=== PATIENT | female | born 1975 | race Caucasian/White ===

== ENCOUNTER 2016-12-30 10:54 | Emergency (ER) | payer OTHER ==
[2016-12-30] MEDS ORDERED: Sodium Chloride 0.9% 1,000 ML IV ONE (11:14)
[2016-12-30] MEDS ORDERED: Morphine 2 MG/ML Syringe IVPUSH ONE (11:14)
[2016-12-30] MEDS ORDERED: Ondansetron 4 MG/2 ML SDV IVPUSH ONE (11:14)
[2016-12-30 11:16] VITALS: BP 122/79
[2016-12-30 11:54] LABS: CHLORIDE,CL 104 mmol/L (98-110); SODIUM,NA 141 mmol/L (136-146)
--- NOTE | 2016-12-30 12:05 | EDM.PDOC ---
ED HPI GI/ABDOMINAL - General Chief Complaint: Abdominal Pain Stated Complaint: ABDOMINAL PAIN Time Seen by Provider: 12/30/16 11:02 Source of Information: Reports: Patient History Limitations: Reports: No limitations - History of Present Illness INITIAL COMMENTS - FREE TEXT/NARRATIVE: History of present illness: [] Patient has had a week of constipation and comes in with abdominal pain and rectal bleeding today. She states she is almost toilet all night trying to have a bowel movement and started passing blood from her rectum. She also complains of inability to urinate, swelling of her abdomen and nausea. She is also unable to urinate. Patient is currently being followed oncology for an abnormal neutrophil count. Review of systems: As per history of present illness and below otherwise all systems reviewed and negative. Past medical history: As per history of present illness and as reviewed below otherwise noncontributory. Surgical history: As per history of present illness and as reviewed below otherwise noncontributory. Social history: No reported history of drug or alcohol abuse. Family history: As per history of present illness and as reviewed below otherwise noncontributory. Physical exam: General: Well developed, well nourished in NAD HEENT: Atraumatic, normocephalic, pupils reactive, negative for conjunctival pallor or scleral icterus, mucous membranes moist, throat clear, neck supple, nontender, trachea midline. Lungs: Clear to auscultation, breath sounds equal bilaterally, chest nontender. Heart: S1S2, regular, negative for clicks, rubs, or JVD. Abdomen: Soft, distended, no tympanitic to percussion, nontender, no palpable masses no rebound or guarding. hepatosplenomegaly. Negative for costovertebral tenderness. Pelvis: Stable nontender. Genitourinary: Deferred. Rectal: Deferred. Extremities: Atraumatic, negative for cords or calf pain. Neurovascular unremarkable. Neuro: Awake, alert, oriented. Cranial nerves II through XII unremarkable. Cerebellum unremarkable. Motor and sensory unremarkable throughout. Exam nonfocal. Diagnostics: [] X-ray ruling out obstruction, labs and UA are all normal Therapeutics: [] IV hydrated pain management with improvement Impression: [] Constipation Plan: [] Mag citrate as directed followup PMD return if symptoms worsen Definitive disposition and diagnosis as appropriate pending reevaluation and review of above. - Related Data Allergies/ADRs: Allergies Allergy/AdvReac Type Severity Reaction Status Date / Time clonazepam Allergy Nausea Verified 12/30/16 11:08 pregabalin [From Lyrica] Allergy Paralysis Verified 12/30/16 11:08 Home Meds: Home Meds Diltiazem [Dilacor XR] 1 tab PO DAILY 11/04/14 [History] Omeprazole [Omeprazole] 1 tab PO DAILY 07/18/15 [History] Propranolol [Inderal LA] 1 tab PO DAILY 07/18/15 [History] Carisoprodol [Soma] 350 mg PO TID PRN 11/19/15 [History] Ascorbate Calcium [Vitamin C] 1 tab PO DAILY 08/17/16 [History] Divalproex Sodium [Divalproex Sodium ER] 1 tab PO BIDPC PRN 08/17/16 [History] Gabapentin [Neurontin] 600 mg PO BID 08/17/16 [History] PARoxetine HCl [Paxil] 20 mg PO DAILY 08/17/16 [History] atorvaSTATin Calcium [Atorvastatin Calcium] 10 mg PO DAILY 08/17/16 [History] Bisacodyl [Dulcolax] 5 mg PO DAILY 12/30/16 [History] Past Medical History Cardiovascular History: Reports: Arrhythmia, Hypertension Other Cardiovascular History: tachycardia, mitral valve prolapse Gastrointestinal History: Reports: GERD 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 - Infectious Disease History Infectious Disease History: Reports: Chicken pox Other Infectious Disease History: childhood. - Past Surgical History Cardiovascular Surgical History: Reports: Cardiac Ablation GI Surgical History: Reports: None Social & Family History - Family History Family Medical History: Noncontributory - Tobacco Use Smoking Status *Q: Never Smoker Second Hand Smoke Exposure: No - Caffeine Use Caffeine Use: Reports: Coffee - Alcohol Use Days Per Week of Alcohol Use: 0 - Recreational Drug Use Recreational Drug Use: No ED ROS GENERAL - Review of Systems Review Of Systems: See Below (See history of present illness) ED EXAM, GI/ABD - Physical Exam Exam: See Below (See history of present illness) Course - Vital Signs Last Recorded V/S: Last Vital Signs Temp 36.8 C 12/30/16 11:08 Pulse 75 12/30/16 11:08 Resp 18 12/30/16 11:08 BP 122/79 12/30/16 11:08 Pulse Ox 100 12/30/16 11:08 - Orders/Labs/Meds Orders: Active Orders 24 hr Category Date Time Status Abdomen 2V AP Upright Decub [CR] Stat Exams 12/30/16 11:13 Taken Labs: Laboratory Tests 12/30/16 12/30/16 12/30/16 Range/Units 11:25 11:25 11:25 WBC 4.93 (4.0-11.0) K/uL RBC 4.10 L (4.30-5.90) M/uL Hgb 12.2 (12.0-16.0) g/dL Hct 37.1 (36.0-46.0) % MCV 90.5 (80.0-98.0) fL MCH 29.8 (27.0-32.0) pg MCHC 32.9 (31.0-37.0) g/dL RDW Std Deviation 43.2 (28.0-62.0) fl RDW Coeff of Adithya 13 (11.0-15.0) % Plt Count 253 (150-400) K/uL MPV 9.80 (7.40-12.00) fL Neut % (Auto) 30.7 L (48.0-80.0) % Lymph % (Auto) 51.5 H (16.0-40.0) % [place] % (Auto) 15.0 (0.0-15.0) % Eos % (Auto) 2.6 (0.0-7.0) % Baso % (Auto) 0.2 (0.0-1.5) % Neut # 1.5 (1.4-5.7) K/uL Lymph # 2.5 H (0.6-2.4) K/uL [place] # 0.7 (0.0-0.8) K/uL Eos # 0.1 (0.0-0.7) K/uL Baso # 0.0 (0.0-0.1) K/uL Nucleated RBC % 0.0 /100WBC Nucleated RBCs # 0 K/uL Sodium 141 (136-146) mmol/L Potassium 4.0 (3.5-5.1) mmol/L Chloride 104 (98-110) mmol/L Carbon Dioxide 27 (21-31) mmol/L BUN 9 (6.0-23.0) mg/dL Creatinine 0.7 (0.6-1.5) mg/dL Est Cr Clr Drug Dosing 87.70 mL/min Estimated GFR (MDRD) > 60.0 ml/min Glucose 89 (60-110) mg/dL Calcium 9.1 (8.8-10.8) mg/dL Total Bilirubin 0.4 (0.1-1.5) mg/dL AST 18 (5-40) IU/L ALT 46 (8-54) IU/L Alkaline Phosphatase 66 (40-150) Total Protein 6.7 (6.0-8.0) g/dL Albumin 4.0 (3.5-5.0) g/dL Globulin 2.7 (2.0-3.5) g/dL Albumin/Globulin Ratio 1.5 (1.3-2.8) HCG, Qual (NEG) Urine Color Urine Appearance Urine pH (5.0-8.0) Ur Specific [place] (1.001-1.035) Urine Protein (NEGATIVE) mg/dL Urine Glucose (UA) (NEGATIVE) mg/dL Urine Ketones (NEGATIVE) mg/dL Urine Occult Blood (NEGATIVE) Urine Nitrite (NEGATIVE) Urine Bilirubin (NEGATIVE) Urine Urobilinogen (<2.0) EU/dL Ur Leukocyte Esterase (NEGATIVE) Urine RBC (0-2/HPF) Urine WBC (0-5/HPF) Ur Epithelial Cells (NONE-FEW) Urine Bacteria (NEGATIVE) Blood Type O POSITIVE Antibody Screen NEGATIVE 12/30/16 12/30/16 Range/Units 11:25 12:08 WBC (4.0-11.0) K/uL RBC (4.30-5.90) M/uL Hgb (12.0-16.0) g/dL Hct (36.0-46.0) % MCV (80.0-98.0) fL MCH (27.0-32.0) pg MCHC (31.0-37.0) g/dL RDW Std Deviation (28.0-62.0) fl RDW Coeff of Adithya (11.0-15.0) % Plt Count (150-400) K/uL MPV (7.40-12.00) fL Neut % (Auto) (48.0-80.0) % Lymph % (Auto) (16.0-40.0) % [place] % (Auto) (0.0-15.0) % Eos % (Auto) (0.0-7.0) % Baso % (Auto) (0.0-1.5) % Neut # (1.4-5.7) K/uL Lymph # (0.6-2.4) K/uL [place] # (0.0-0.8) K/uL Eos # (0.0-0.7) K/uL Baso # (0.0-0.1) K/uL Nucleated RBC % /100WBC Nucleated RBCs # K/uL Sodium (136-146) mmol/L Potassium (3.5-5.1) mmol/L Chloride (98-110) mmol/L Carbon Dioxide (21-31) mmol/L BUN (6.0-23.0) mg/dL Creatinine (0.6-1.5) mg/dL Est Cr Clr Drug Dosing mL/min Estimated GFR (MDRD) ml/min Glucose (60-110) mg/dL Calcium (8.8-10.8) mg/dL Total Bilirubin (0.1-1.5) mg/dL AST (5-40) IU/L ALT (8-54) IU/L Alkaline Phosphatase (40-150) Total Protein (6.0-8.0) g/dL Albumin (3.5-5.0) g/dL Globulin (2.0-3.5) g/dL Albumin/Globulin Ratio (1.3-2.8) HCG, Qual NEGATIVE (NEG) Urine Color YELLOW Urine Appearance CLEAR Urine pH 6.5 (5.0-8.0) Ur Specific [place] 1.010 (1.001-1.035) Urine Protein NEGATIVE (NEGATIVE) mg/dL Urine Glucose (UA) NEGATIVE (NEGATIVE) mg/dL Urine Ketones NEGATIVE (NEGATIVE) mg/dL Urine Occult Blood NEGATIVE (NEGATIVE) Urine Nitrite NEGATIVE (NEGATIVE) Urine Bilirubin NEGATIVE (NEGATIVE) Urine Urobilinogen 0.2 (<2.0) EU/dL Ur Leukocyte Esterase NEGATIVE (NEGATIVE) Urine RBC 0-1 (0-2/HPF) Urine WBC 0-2 (0-5/HPF) Ur Epithelial Cells FEW (NONE-FEW) Urine Bacteria RARE (NEGATIVE) Blood Type Antibody Screen Meds: Medications Discontinued Medications Generic Name Dose Route Start Last Admin Trade Name Samantha PRN Reason Stop Dose Admin Sodium Chloride 1,000 mls @ 999 mls/hr 12/30/16 11:14 12/30/16 11:27 Normal Saline IV 12/30/16 12:14 999 mls/hr .Bolus ONE Administration Morphine Sulfate 2 mg 12/30/16 11:14 12/30/16 11:27 Morphine IVPUSH 12/30/16 11:15 2 mg ONETIME ONE Administration Ondansetron HCl 4 mg 12/30/16 11:14 12/30/16 11:27 Zofran IVPUSH 12/30/16 11:15 4 mg ONETIME ONE Administration Departure - Departure Time of Disposition: 12:42 Disposition: Home, Self-Care 01 Condition: good Clinical Impression: Constipation Qualifiers: Constipation type: unspecified constipation type Qualified Code(s): K59.00 - Constipation, unspecified Forms: ED Department Discharge Additional Instructions: The following information is given to patients seen in the emergency department who are being discharged to home. This information is to outline your options for follow-up care. We provide all patients seen in our emergency department with a follow-up referral. The need for follow-up, as well as the timing and circumstances, are variable depending upon the specifics of your emergency department visit. If you don't have a primary care physician on staff, we will provide you with a referral. We always advise you to contact your personal physician following an emergency department visit to inform them of the circumstance of the visit and for follow-up with them and/or the need for any referrals to a consulting specialist. The emergency department will also refer you to a specialist when appropriate. This referral assures that you have the opportunity for follow-up care with a specialist. All of these measure are taken in an effort to provide you with optimal care, which includes your follow-up. Under all circumstances we always encourage you to contact your private physician who remains a resource for coordinating your care. When calling for follow-up care, please make the office aware that this follow-up is from your recent emergency room visit. If for any reason you are refused follow-up, please contact the [facility] Emergency Department at and asked to speak to the emergency department charge nurse. Mag maynard as directed [facility] [address] [place] [id number] - My Orders Last 24 Hours: My Active Orders 12/30/16 11:13 Abdomen 2V AP Upright Decub [CR] Stat - Assessment/Plan Last 24 Hours: My Active Orders 12/30/16 11:13 Abdomen 2V AP Upright Decub [CR] Stat
--- NOTE | 2016-12-31 21:21 | CR ---
EXAM DATE: 12/30/16 PATIENT'S AGE: 41 Patient: TIMOTHY VELIZ Facility: [place], [place] : 1975 Study: XRay Chest/Abd/Pelvis [id number]/12/2017 12:27:24 PM Ordering Physician: Hoang Hernandez Final Report: INDICATION: Pain, Constipation TECHNIQUE: Three views, acute abdominal series. COMPARISON: Correlation is made with CT of the chest, abdomen and pelvis dated 05/31/2016. FINDINGS: No air-filled distended loops of bowel. No pneumatosis or portal venous gas. No free intraperitoneal air. Moderate stool burden. There are no suspicious calcifications noted over either kidney or ureter. No aggressive osseous lesion. Moderate right-sided scoliosis of the chest, left-sided scoliosis in the lumbar spine. No pleural effusion, or new pulmonary opacities. IMPRESSION: Nonobstructed bowel gas pattern. No free intraperitoneal air. Moderate stool burden. Dictated by Khris Chambers MD @ Dec 30 2016 12:55PM (Electronic Signature) Report Signed by Proxy and Original Signed Document filed in the Medical Record. MTDD
== END 2016-12-30 12:56 | disposition home or self-care (01) ==
LOC: MW.ED 10:54
DX: K59.00 Constipation, unspecified (principal); I10 Essential (primary) hypertension; K21.9 Gastro-esophageal reflux disease without esophagitis; Z79.899 Other long term (current) drug therapy; Z88.8 Allergy status to other drugs, medicaments and biological substances
CPT/HCPCS: 36415; 74022; 80053; 81001; 84703; 85025; 86850; 86900; 86901; 96361; 96374; 96375; 99283; J2270; J2405; J7040; 99284

== ENCOUNTER 2017-03-06 20:09 | Emergency (ER) | payer OTHER ==
[2017-03-06 21:29] VITALS: BP 136/80
== END 2017-03-06 21:58 | disposition left against medical advice (07) ==
LOC: MW.ED 20:09
DX: Z53.21 Procedure and treatment not carried out due to patient leaving prior to being seen by health care provider (principal)

== ENCOUNTER 2017-11-26 16:24 | Emergency (ER) | payer OTHER ==
[2017-11-26] MEDS ORDERED: Bacitracin Oint 1 GM U/D Packet TOP ONE (16:57)
--- NOTE | 2017-11-26 17:04 | EDM.PDOC ---
ED HPI GENERAL MEDICAL PROBLEM - General Chief Complaint: Bite:Animal, Insect Stated Complaint: DOG BITE LEFT HAND Time Seen by Provider: 11/26/17 16:31 Source of Information: Reports: Patient History Limitations: Reports: No Limitations - History of Present Illness INITIAL COMMENTS - FREE TEXT/NARRATIVE: HISTORY AND PHYSICAL: History of present illness: Patient is a 41-year-old female who presents to the emergency room today after being bitten by her dog on the left third digit. She states last night she was picking the dog up and he bit the left middle third digit on her hand. Today she has noticed increased in pain and swelling. The dog is up-to-date on its immunizations. Patient last had a tetanus in 2014. Law enforcement was notified. Review of systems: As per history of present illness and below otherwise all systems reviewed and negative. Past medical history: As per history of present illness and as reviewed below otherwise noncontributory. Surgical history: As per history of present illness and as reviewed below otherwise noncontributory. Social history: No reported history of drug or alcohol abuse. Family history: As per history of present illness and as reviewed below otherwise noncontributory. Physical exam: General: Nontoxic-appearing 41-year-old female. Alert and oriented. Appears in no acute distress. HEENT: Atraumatic, normocephalic, pupils reactive, negative for conjunctival pallor or scleral icterus, mucous membranes moist, throat clear, neck supple, nontender, trachea midline. Lungs: Clear to auscultation, breath sounds equal bilaterally, chest nontender. Heart: S1S2, regular, negative for clicks, rubs, or JVD. Abdomen: Soft, nondistended, nontender. Negative for masses or hepatosplenomegaly. Negative for costovertebral tenderness. Pelvis: Stable nontender. Genitourinary: Deferred. Rectal: Deferred. Extremities: Moves all extremities per self without difficulty or deficits, negative for cords or calf pain. Neurovascular unremarkable. Skin: Two puncture wounds noted distally above the PIJ on the left 3rd digit ( appears the the tooth punctured through the meat of the finger - entrance/exit wound). Moderate soft tissue swelling and erythema. Neuro: Awake, alert, oriented. Cranial nerves II through XII unremarkable. Cerebellum unremarkable. Motor and sensory unremarkable throughout. Exam nonfocal. Patient is requesting medication for pain. Will give a Brusett while here. She does have a family member here with her to drive. Xray is negative for fracture. Wound care was completed. Discussed home care and how to monitor for signs of infection. Keflex TID x 7 days. She denies any further questions or concerns. Diagnostics: Finger x-ray Therapeutics: Wound care, bacitracin, spoon splint and nonstick dressing Impression: Dog bite, left hand Plan: 1. Please take the antibiotic as directed. The area clean and dry. Monitor for signs of infection as we discussed. 2. Rest, ice, elevate the extremity. Tylenol and/or ibuprofen may be used for pain management. 3. Follow up with her primary caregiver in the next couple days. Return to the ED as needed and as discussed. Definitive disposition and diagnosis as appropriate pending reevaluation and review of above. Duration: Day(s): Location: Reports: Upper Extremity, Left Left 3-Middle finger Pain Score (Numeric/FACES): 8 - Related Data Allergies Allergy/AdvReac Type Severity Reaction Status Date / Time clonazepam Allergy Nausea Verified 11/26/17 16:53 cyclobenzaprine Allergy Syncope Verified 11/26/17 16:53 pregabalin [From Lyrica] Allergy Paralysis Verified 11/26/17 16:53 shellfish derived Allergy Hives Verified 11/26/17 16:53 Home Meds: Home Meds Diltiazem [Dilacor XR] 1 tab PO DAILY 11/04/14 [History] Omeprazole [Omeprazole] 1 tab PO DAILY 07/18/15 [History] Propranolol [Inderal LA] 1 tab PO DAILY 07/18/15 [History] Carisoprodol [Soma] 350 mg PO TID PRN 11/19/15 [History] Ascorbate Calcium [Vitamin C] 1 tab PO DAILY 08/17/16 [History] Divalproex Sodium [Divalproex Sodium ER] 1 tab PO BIDPC PRN 08/17/16 [History] Gabapentin [Neurontin] 600 mg PO BID 08/17/16 [History] PARoxetine HCl [Paxil] 20 mg PO DAILY 08/17/16 [History] atorvaSTATin Calcium [Atorvastatin Calcium] 10 mg PO DAILY 08/17/16 [History] Bisacodyl [Dulcolax] 5 mg PO DAILY 12/30/16 [History] Cephalexin [Keflex] 500 mg PO Q8H 7 Days #21 cap 11/26/17 [Rx] Past Medical History Cardiovascular History: Reports: Arrhythmia, Hypertension Other Cardiovascular History: tachycardia, mitral valve prolapse Gastrointestinal History: Reports: 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 - Infectious Disease History Infectious Disease History: Reports: Chicken Pox Other Infectious Disease History: childhood. - Past Surgical History Cardiovascular Surgical History: Reports: Cardiac Ablation GI Surgical History: Reports: None Musculoskeletal Surgical History: Reports: Other (See Below) Other Musculoskeletal Surgeries/Procedures:: back surgery May 2015, L4-L5 Social & Family History - Family History Family Medical History: Noncontributory - Tobacco Use Smoking Status *Q: Never Smoker Second Hand Smoke Exposure: No - Caffeine Use Caffeine Use: Reports: Soda Caffeine Use Comment: 2 cans daily - Alcohol Use Days Per Week of Alcohol Use: 0 - Recreational Drug Use Recreational Drug Use: No ED ROS GENERAL - Review of Systems Review Of Systems: ROS reveals no pertinent complaints other than HPI. ED EXAM, ANIMAL BITE - Physical Exam Exam: See Below (See dictation) Course - Vital Signs Last Recorded V/S: Last Vital Signs Temp 98.1 F 11/26/17 16:50 Pulse 87 11/26/17 16:50 Resp 18 11/26/17 16:50 BP 121/84 11/26/17 16:50 Pulse Ox 96 11/26/17 16:50 - Orders/Labs/Meds Orders: Active Orders 24 hr Category Date Time Status Fingers Third Digit Lt F2 [CR] Stat Exams 11/26/17 16:57 Taken Meds: Medications Discontinued Medications Generic Name Dose Route Start Last Admin Trade Name Freq PRN Reason Stop Dose Admin Hydrocodone Bitart/Acetaminophen 1 tab 11/26/17 17:22 11/26/17 17:30 Brusett 325-5 Mg PO 11/26/17 17:23 1 tab ONETIME ONE Administration Bacitracin 1 dose 11/26/17 16:57 11/26/17 17:31 Bacitracin Oint 1 Gm TOP 11/26/17 16:58 1 dose ONETIME ONE Administration Departure - Departure Time of Disposition: 17:30 Disposition: Home, Self-Care 01 Clinical Impression: Dog bite of finger Qualifiers: Encounter type: initial encounter Qualified Code(s): S61.259A - Open bite of unspecified finger without damage to nail, initial encounter - Discharge Information Prescriptions: Cephalexin [Keflex] 500 mg PO Q8H 7 Days #21 cap Instructions: Animal Bite, [id number] Referrals: Leroy Acosta MD [Primary Care Provider] - Forms: ED Department Discharge Additional Instructions: My general discharge The following information is given to patients seen in the emergency department who are being discharged to home. This information is to outline your options for follow-up care. We provide all patients seen in our emergency department with a follow-up referral. The need for follow-up, as well as the timing and circumstances, are variable depending upon the specifics of your emergency department visit. If you don't have a primary care physician on staff, we will provide you with a referral. We always advise you to contact your personal physician following an emergency department visit to inform them of the circumstance of the visit and for follow-up with them and/or the need for any referrals to a consulting specialist. The emergency department will also refer you to a specialist when appropriate. This referral assures that you have the opportunity for follow-up care with a specialist. All of these measure are taken in an effort to provide you with optimal care, which includes your follow-up. Under all circumstances we always encourage you to contact your private physician who remains a resource for coordinating your care. When calling for follow-up care, please make the office aware that this follow-up is from your recent emergency room visit. If for any reason you are refused follow-up, please contact the [facility] Emergency Department at and asked to speak to the emergency department charge nurse. [facility] - [facility] [address] [place] [address], [address] [place] [address] 1. Please take the antibiotic as directed. The area clean and dry. Monitor for signs of infection as we discussed. 2. Rest, ice, elevate the extremity. Tylenol and/or ibuprofen may be used for pain management. 3. Follow up with her primary caregiver in the next couple days. Return to the ED as needed and as discussed. - My Orders Last 24 Hours: My Active Orders 11/26/17 16:57 Fingers Third Digit Lt F2 [CR] Stat - Assessment/Plan Last 24 Hours: My Active Orders 11/26/17 16:57 Fingers Third Digit Lt F2 [CR] Stat
[2017-11-26] MEDS ORDERED: Acetaminophen/HYDROcodone 325-5 MG Tab PO ONE (17:22)
[2017-11-26 18:28] VITALS: BP 119/56
--- NOTE | 2017-11-27 09:37 | CR ---
EXAM DATE: 11/26/17 PATIENT'S AGE: 41 Patient: TIMOTHY VELIZ Facility: [place], [place] Site . Site : 1975 Study: XRay Extremity Left 3RD FINGER [id number]/6/[id number] 5:21:37 PM Ordering Physician: Doctor Tinsley Final Report: INDICATION: Dog bite TECHNIQUE: Three views 3rd digit left hand COMPARISON: None FINDINGS: Bones: Alignment is normal. No fractures or bone lesions. Joint spaces: Unremarkable. Soft tissues: Mild soft tissue edema adjacent to the PIP joint. IMPRESSION: Mild soft tissue edema adjacent to the PIP joint. Dictated by Ghassan Bell MD @ 11/26/2017 5:58:31 PM Dictated by: Ghassan Bell MD @ 11/26/2017 17:58:39 (Electronic Signature) Report Signed by Proxy. [facility]
== END 2017-11-26 18:20 | disposition home or self-care (01) ==
LOC: MW.ED 16:24
DX: S61.253A Open bite of left middle finger without damage to nail, initial encounter (principal); I10 Essential (primary) hypertension; Z88.8 Allergy status to other drugs, medicaments and biological substances; Z91.013 Allergy to seafood; Z79.899 Other long term (current) drug therapy; W54.0XXA Bitten by dog, initial encounter
CPT/HCPCS: 73140; 99283; A9270

== ENCOUNTER 2019-01-03 05:17 | Emergency (ER) | payer BC ==
[2019-01-03] MEDS ORDERED: Sodium Chloride 0.9% 500 ML IV SCH (05:30)
[2019-01-03] MEDS ORDERED: Acetaminophen/HYDROcodone 325-10 MG Tab PO ONE (05:31)
--- NOTE | 2019-01-03 05:33 | EDM.PDOC ---
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 She is scheduled to see cardiology next week in [place] for reevaluation she is seemed Dr. Rupal gomez and is on a Holter monitor currently. Review of systems: As per history of present illness and below otherwise all systems reviewed and negative. Past medical history: As per history of present illness and as reviewed below otherwise noncontributory. Surgical history: As per history of present illness and as reviewed below otherwise noncontributory. Social history: No reported history of drug or alcohol abuse. Family history: As per history of present illness and as reviewed below otherwise noncontributory. Physical exam: HEENT: Atraumatic, normocephalic, pupils reactive, negative for conjunctival pallor or scleral icterus, mucous membranes moist, throat clear, neck supple, nontender, trachea midline. Lungs: Clear to auscultation, breath sounds equal bilaterally, chest nontender. Heart: S1S2, regular, negative for clicks, rubs, or JVD. Abdomen: Soft, nondistended, nontender. Negative for masses or hepatosplenomegaly. Negative for costovertebral tenderness. Pelvis: Stable nontender. Genitourinary: Deferred. Rectal: Deferred. Extremities: Atraumatic, negative for cords or calf pain. Neurovascular unremarkable. Neuro: Awake, alert, anxious, oriented. Cranial nerves II through XII unremarkable. Cerebellum unremarkable. Motor and sensory unremarkable throughout. Exam nonfocal. Diagnostics: CBC CMP troponin PT/INR chest x-ray EKG Therapeutics: Hydrocodone 10 mg by mouth Impression: #1 atypical chest pain #2 history of cardiac dysrhythmia (see Mariah-Parkinson- White with ablation ) Definitive disposition and diagnosis as appropriate pending reevaluation and review of above. chest pain Pain Score (Numeric/FACES): 10 - Related Data Allergies Allergy/AdvReac Type Severity Reaction Status Date / Time clonazepam Allergy Nausea Verified 01/03/19 05:21 cyclobenzaprine Allergy Syncope Verified 01/03/19 05:21 pregabalin [From Lyrica] Allergy Paralysis Verified 01/03/19 05:21 shellfish derived Allergy Hives Verified 01/03/19 05:21 Home Meds: Home Meds Diltiazem [Dilacor XR] 1 tab PO DAILY 11/04/14 [History] Omeprazole 1 tab PO DAILY 07/18/15 [History] Propranolol [Inderal LA] 1 tab PO DAILY 07/18/15 [History] Carisoprodol [Soma] 350 mg PO TID PRN 11/19/15 [History] Ascorbate Calcium [Vitamin C] 1 tab PO DAILY 08/17/16 [History] Divalproex Sodium [Divalproex Sodium ER] 1 tab PO BIDPC PRN 08/17/16 [History] Gabapentin [Neurontin] 600 mg PO BID 08/17/16 [History] PARoxetine HCl [Paxil] 20 mg PO DAILY 08/17/16 [History] atorvaSTATin Calcium [Atorvastatin Calcium] 10 mg PO DAILY 08/17/16 [History] Bisacodyl [Dulcolax] 5 mg PO DAILY 12/30/16 [History] cephALEXin [Keflex] 500 mg PO Q8H 7 Days #21 cap 11/26/17 [Rx] Past Medical History HEENT History: Reports: None Cardiovascular History: Reports: Arrhythmia, Hypertension Other Cardiovascular History: tachycardia, mitral valve prolapse. 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 Psychiatric History: Reports: Depression Endocrine/Metabolic History: Reports: None Hematologic History: Reports: None Immunologic History: Reports: None Oncologic (Cancer) History: Reports: None Dermatologic History: Reports: None - Infectious Disease History Infectious Disease History: Reports: Chicken Pox Other Infectious Disease History: childhood. - Past Surgical History Head Surgeries/Procedures: Reports: None Cardiovascular Surgical History: Reports: Cardiac Ablation GI Surgical History: Reports: None Musculoskeletal Surgical History: Reports: Other (See Below) Other Musculoskeletal Surgeries/Procedures:: back surgery May 2015, L4-L5 Social & Family History - Family History Family Medical History: Noncontributory - Tobacco Use Smoking Status *Q: Never Smoker - Caffeine Use Caffeine Use: Reports: Tea Caffeine Use Comment: 2 cans daily - Recreational Drug Use Recreational Drug Use: Yes Drug Use in Last 12 Months: Yes ED ROS GENERAL - Review of Systems Review Of Systems: ROS reveals no pertinent complaints other than HPI. ED EXAM, GENERAL - Physical Exam Exam: See Below (See dictation) Course - Vital Signs Last Recorded V/S: Last Vital Signs Temp 36.1 C 01/03/19 05:22 Pulse 106 H 01/03/19 05:22 Resp 18 01/03/19 05:22 BP 190/81 H 01/03/19 05:22 Pulse Ox 97 01/03/19 05:22 Departure - Departure Time of Disposition: 05:33 Disposition: Home, Self-Care 01 Condition: Good Clinical Impression: Atypical chest pain, History of Qnijv-Dnermumup-Uryxu (WPW) syndrome - Discharge Information
--- NOTE | 2019-01-03 06:03 | CR ---
Indication: Chest pain, shortness of breath Technique: Chest 1 view Comparison: None Findings/Impression: Cardiac size within normal limits. Electrical device projects over the left upper lung field. Lungs are hyperexpanded. No focal infiltrate, effusion, or pneumothorax. Dextroscoliosis of the thoracic spine. Dictated by Lola Doty MD @ Jan 03 2019 6:02AM Signed by Dr. Lola Doty @ Jan 03 2019 6:02AM
[2019-01-03 06:21] LABS: CHLORIDE,CL 106 mmol/L (98-107); SODIUM,NA 142 mmol/L (136-145)
[2019-01-03] MEDS ORDERED: Morphine 2 MG/ML Syringe IVPUSH ONE (07:23)
[2019-01-03 07:58] VITALS: BP 138/81
== END 2019-01-03 07:57 | disposition home or self-care (01) ==
LOC: MW.ED 05:17
DX: R07.89 Other chest pain (principal); I10 Essential (primary) hypertension; Z88.8 Allergy status to other drugs, medicaments and biological substances; Z79.899 Other long term (current) drug therapy; Z86.59 Personal history of other mental and behavioral disorders
CPT/HCPCS: 36415; 71045; 80048; 84484; 85025; 85610; 93005; 96374; 99285; A9270; J2270; J7040

== ENCOUNTER 2019-03-19 07:55 | Emergency (ER) | payer BC ==
--- NOTE | 2019-03-19 08:02 | EDM.PDOC ---
ED HPI GENERAL MEDICAL PROBLEM - General Chief Complaint: Bite:Animal, Insect Stated Complaint: DOG BITE- RIGHT HAND Time Seen by Provider: 03/19/19 07:58 Source of Information: Reports: Patient - History of Present Illness INITIAL COMMENTS - FREE TEXT/NARRATIVE: HISTORY AND PHYSICAL: History of present illness: [Note that initially triage is placed the dog bite on right hand however there is a contraction and as her left index finger, the patient's own dogs were fighting and er schnoodle midterm left index finger there is a puncture wound on the dorsum and a small laceration on the palmar surface approximately 1 cm in length tendon function is intact no sutures applied wound is thoroughly cleansed and explored no exudate for culture wound is cleansed bled well entire limb neurovascularly intact no fever nausea vomiting chills sweats no chest pain shortness breath headache dizziness palpitation about a urine symptoms Review of systems: As per history of present illness and below otherwise all systems reviewed and negative. Past medical history: As per history of present illness and as reviewed below otherwise noncontributory. Surgical history: As per history of present illness and as reviewed below otherwise noncontributory. Social history: No reported history of drug or alcohol abuse. Family history: As per history of present illness and as reviewed below otherwise noncontributory. Physical exam: HEENT: Atraumatic, normocephalic, pupils reactive, negative for conjunctival pallor or scleral icterus, mucous membranes moist, throat clear, neck supple, nontender, trachea midline. Lungs: Clear to auscultation, breath sounds equal bilaterally, chest nontender. Heart: S1S2, regular, negative for clicks, rubs, or JVD. Abdomen: Soft, nondistended, nontender. Negative for masses or hepatosplenomegaly. Negative for costovertebral tenderness. Pelvis: Stable nontender. Genitourinary: Deferred. Rectal: Deferred. Extremities: Atraumatic, negative for cords or calf pain. Neurovascular unremarkable. Neuro: Awake, alert, oriented. Cranial nerves II through XII unremarkable. Cerebellum unremarkable. Motor and sensory unremarkable throughout. Exam nonfocal. Skin as per history of present illness Diagnostics: [Shnea ] Therapeutics: [Augmentin ] Impression: [Dog bite 1 cm laceration-no sutures applied , wound is not full-thickness in its entirety ] Definitive disposition and diagnosis as appropriate pending reevaluation and review of above. - Related Data Allergies Allergy/AdvReac Type Severity Reaction Status Date / Time clonazepam Allergy Nausea Verified 01/03/19 05:21 cyclobenzaprine Allergy Syncope Verified 01/03/19 05:21 pregabalin [From Lyrica] Allergy Paralysis Verified 01/03/19 05:21 shellfish derived Allergy Hives Verified 01/03/19 05:21 Home Meds: Home Meds Diltiazem [Dilacor XR] 1 tab PO DAILY 11/04/14 [History] Omeprazole 1 tab PO DAILY 07/18/15 [History] Propranolol [Inderal LA] 1 tab PO DAILY 07/18/15 [History] Carisoprodol [Soma] 350 mg PO TID PRN 11/19/15 [History] Ascorbate Calcium [Vitamin C] 1 tab PO DAILY 08/17/16 [History] Divalproex Sodium [Divalproex Sodium ER] 1 tab PO BIDPC PRN 08/17/16 [History] Gabapentin [Neurontin] 600 mg PO BID 08/17/16 [History] PARoxetine HCl [Paxil] 20 mg PO DAILY 08/17/16 [History] atorvaSTATin Calcium [Atorvastatin Calcium] 10 mg PO DAILY 08/17/16 [History] Bisacodyl [Dulcolax] 5 mg PO DAILY 12/30/16 [History] cephALEXin [Keflex] 500 mg PO Q8H 7 Days #21 cap 11/26/17 [Rx] Past Medical History HEENT History: Reports: None Cardiovascular History: Reports: Arrhythmia, Hypertension Other Cardiovascular History: tachycardia, mitral valve prolapse. merrill parkinson white syndrome Respiratory History: Reports: None Gastrointestinal History: Reports: GERD Genitourinary History: Reports: None LIGHT INDUSTRIAL History: Reports: Musculoskeletal History: Reports: Other (See Below) Other Musculoskeletal History: scoliosis, muscle spasm Neurological History: Reports: Migraines Other Neuro History: degenerative disc disease , and slipped discs in back. Psychiatric History: Reports: Depression Endocrine/Metabolic History: Reports: None Hematologic History: Reports: None Immunologic History: Reports: None Oncologic (Cancer) History: Reports: None Dermatologic History: Reports: None - Infectious Disease History Infectious Disease History: Reports: Chicken Pox Other Infectious Disease History: childhood. - Past Surgical History Head Surgeries/Procedures: Reports: None Cardiovascular Surgical History: Reports: Cardiac Ablation GI Surgical History: Reports: None Musculoskeletal Surgical History: Reports: Other (See Below) Other Musculoskeletal Surgeries/Procedures:: back surgery May 2015, L4-L5 Social & Family History - Family History Family Medical History: Noncontributory - Caffeine Use Caffeine Use: Reports: Tea Caffeine Use Comment: 2 cans daily ED ROS GENERAL - Review of Systems Review Of Systems: See Below ED EXAM, ANIMAL BITE - Physical Exam Exam: See Below Departure - Departure Time of Disposition: 08:02 Disposition: Home, Self-Care 01 Condition: Good Clinical Impression: Dog bite - Discharge Information Referrals: Leroy Acosta MD [Primary Care Provider] - Additional Instructions: The following information is given to patients seen in the emergency department who are being discharged to home. This information is to outline your options for follow-up care. We provide all patients seen in our emergency department with a follow-up referral. The need for follow-up, as well as the timing and circumstances, are variable depending upon the specifics of your emergency department visit. If you don't have a primary care physician on staff, we will provide you with a referral. We always advise you to contact your personal physician following an emergency department visit to inform them of the circumstance of the visit and for follow-up with them and/or the need for any referrals to a consulting specialist. The emergency department will also refer you to a specialist when appropriate. This referral assures that you have the opportunity for follow-up care with a specialist. All of these measure are taken in an effort to provide you with optimal care, which includes your follow-up. Under all circumstances we always encourage you to contact your private physician who remains a resource for coordinating your care. When calling for follow-up care, please make the office aware that this follow-up is from your recent emergency room visit. If for any reason you are refused follow-up, please contact the [facility] emergency department at and asked to speak to the emergency department charge nurse.
[2019-03-19 08:29] VITALS: BP 124/78
== END 2019-03-19 08:30 | disposition home or self-care (01) ==
LOC: MW.ED 07:55
DX: S61.251A Open bite of left index finger without damage to nail, initial encounter (principal); K21.9 Gastro-esophageal reflux disease without esophagitis; W54.0XXA Bitten by dog, initial encounter; Z88.8 Allergy status to other drugs, medicaments and biological substances; Z79.899 Other long term (current) drug therapy
CPT/HCPCS: 99283

== ENCOUNTER 2021-09-21 15:27 | Emergency (ER) | payer OTHER ==
[2021-09-21] MEDS ORDERED: Ondansetron 4 MG/2 ML SDV IVPUSH ONE (15:38)
[2021-09-21] MEDS ORDERED: Sodium Chloride 0.9% 1,000 ML IV ONE ×2 (15:38→17:08)
[2021-09-21 16:23] LABS: BLOOD UREA NITROGEN,BUN 14 mg/dL (7.0-18.0); CARBON DIOXIDE,CO2 11.5 mmol/L (21.0-32.0); CHLORIDE,CL 97 mmol/L (98-107); GLUCOSE RANDOM 69 mg/dL (74-106); LIPASE 216 U/L (73-393); POTASSIUM,K 4.2 mmol/L (3.5-5.1); SODIUM,NA 131 mmol/L (136-145)
--- NOTE | 2021-09-21 16:39 | CR ---
INDICATION: Fever and cough. Chest pain. TECHNIQUE: Chest 1 views. COMPARISON: 01/03/2019. FINDINGS: Cardiovascular and mediastinum: Heart size and vasculature are normal in caliber and appearance. Lungs and pleural spaces: Lungs are clear. No sign of infiltrate or mass. No sign of pleural effusion. No pneumothorax. Bones and soft tissues: Stable thoracic spine scoliosis. IMPRESSION: No acute findings and no significant changes from the prior exam. No sign of pneumonia. Dictated by Flakito Cohen MD @ 09/21/2021 4:37:23 PM (Electronically Signed)
--- NOTE | 2021-09-21 16:51 | CT ---
INDICATION: Fall with possible loss of consciousness. TECHNIQUE: CT head without contrast. COMPARISON: None. FINDINGS: CSF spaces: Within normal limits for age. Brain parenchyma and extra-axial spaces: The schmid-white differentiation is normal. No sign of mass, hemorrhage, or midline shift. No extra-axial fluid collection. Skull base and calvarium: The visualized paranasal sinuses and mastoid air cells demonstrate no acute or significant findings. The visualized orbits are grossly unremarkable. No skull fractures. IMPRESSION: Unremarkable noncontrast head CT. Please note that all CT scans at this facility use dose modulation, iterative reconstruction, and/or weight-based dosing when appropriate to reduce radiation dose to as low as reasonably achievable. Dictated by Flakito Cohen MD @ 09/21/2021 4:49:24 PM (Electronically Signed)
[2021-09-21] MEDS ORDERED: 50% Dextrose in Water 50 ML Syringe IVPUSH ONE (17:10)
[2021-09-21 17:54] LABS: CORONAVIRUS COVID-19 NAA POSITIVE (NEGATIVE); INFLUENZA A NAA NEGATIVE (NEGATIVE); INFLUENZA B NAA NEGATIVE (NEGATIVE)
[2021-09-21 18:50] VITALS: BP 132/96; PULSE 114
== END 2021-09-21 18:53 | disposition home or self-care (01) ==
LOC: MW.ED 15:27
DX: U07.1 COVID-19 (principal); K52.9 Noninfective gastroenteritis and colitis, unspecified; E16.2 Hypoglycemia, unspecified; K21.9 Gastro-esophageal reflux disease without esophagitis; Z91.013 Allergy to seafood; Z88.5 Allergy status to narcotic agent; Z88.8 Allergy status to other drugs, medicaments and biological substances; Z79.899 Other long term (current) drug therapy
CPT/HCPCS: 0240U; 36415; 70450; 71045; 80053; 80305; 81001; 82947; 83605; 83690; 84484; 85025; 93005; 96374; 96375; 99285; J2405; J7030